=== PATIENT | male | born 2000 | race Caucasian/White ===

== ENCOUNTER 2024-10-08 11:46 | Emergency (ER) | payer SELFPAY ==
[~2024-10-08] VITALS: Ht 188 cm; Wt 86.0 kg
[2024-10-08 11:48] VITALS: O2SAT 98
[2024-10-08 11:53] VITALS: BP 142/85; PULSE 76; RESP 14; TEMP 36.8; O2SAT 96
[2024-10-08] MEDS ORDERED: AMOX1TAB16 MT (12:24)
== END 2024-10-08 12:39 | disposition home or self-care (01) ==
LOC: ER 11:46
DX: S60.511A Abrasion of right hand, initial encounter (principal); S61.451A Open bite of right hand, initial encounter; J45.909 Unspecified asthma, uncomplicated; Z79.899 Other long term (current) drug therapy; W54.0XXA Bitten by dog, initial encounter; Y93.89 Activity, other specified; Y92.89 Other specified places as the place of occurrence of the external cause; Y99.8 Other external cause status
CPT/HCPCS: 99283